=== PATIENT | male | born 1960 | race Caucasian/White ===

== ENCOUNTER 2021-10-23 12:16 | Emergency (ER) | payer OTHER ==
[~2021-10-23] VITALS: Ht 180.3 cm; Wt 77.1 kg
[2021-10-23] MEDS ORDERED: SOMA250 MG PO (12:22)
[2021-10-23 13:15] LABS: HEMATOCRIT 40.8 % (42.0-52.0); HEMOGLOBIN 13.8 gm/dL (14.0-18.0); MCH 32.3 pg (26.0-34.0); MCHC 33.8 g/dL (28.0-37.0); MCV 95.4 fL (80.0-100.0); MPV 9.1 fl. (7.2-11.1); NUCLEATED RBCS 0 /100WBC; PLATELET COUNT* 203 thou/uL (150-400); RBC 4.28 mil/uL (4.50-6.00); RDW-CV 13.8 % (10.5-14.5)
[2021-10-23 13:23] LABS: EOSINOPHILS 3.1 %; LYMPHOCYTES 30.6 %; MONOCYTES 10.5 %; POLYS 54.8 %
[2021-10-23 13:27] LABS: ABSOLUTE BASOPHILS 0.1 thou/uL (0.0-0.2); ABSOLUTE EOSINOPHILS 0.2 thou/uL (0.0-0.7); ABSOLUTE LYMPHOCYTES 1.8 thou/uL (0.8-5.3); ABSOLUTE MONOCYTES 0.6 thou/uL (0.0-1.2); ABSOLUTE NEUTROPHILS 3.2 thou/uL (1.6-8.1)
[2021-10-23 13:32] LABS: CALCIUM 8.2 mg/dL (8.5-10.1); CREATININE 0.7 mg/dL (0.6-1.3); POTASSIUM 3.9 mmol/L (3.5-5.1)
[2021-10-23 13:37] LABS: ALBUMIN 2.4 g/dL (3.4-5.0); TOTAL BILIRUBIN 0.8 mg/dL (<0.1-1.0); TOTAL PROTEIN 7.4 g/dL (6.4-8.2)
[2021-10-23] MEDS ORDERED: COMPRESSION TH1 EACH MISCELL (14:59)
[2021-10-23 15:13] VITALS: BP 121/68
--- NOTE | 2021-10-24 10:02 | EKG ---
[place] [address] ELECTROCARDIOGRAM REPORT Name: RENETTA DOYLE [facility] [id number] Admission: 10/23/21 Attend Phys: Discharge: 10/23/21 Date of : 58 Date of Service: 10/23/21 1247 Report #: [id number] THIS REPORT FOR: //name// [facility] ED Test Date: 2021-10-23 Test Time: 12:47:36 Pat Name: RENETTA DOYLE Department: Room: Gender: [employer] Department Supervisor: : 1960 Requested By: Myesha Leslie Order Number: [id number] MD: Jeircho Bain Measurements Intervals [place] Rate: 58 P: 31 MT: 132 QRS: 90 QRSD: 128 T: -1 QT: 435 QTc: 428 Interpretive Statements Sinus rhythm Atrial premature complex Nonspecific intraventricular conduction delay Diffuse nonspecific ST-T alteration No previous ECG available for comparison Electronically Signed On 10-23-2021 14:13:54 [employer]IC[employer] by Jericho Bain [email or web address] <ELECTRONICALLY SIGNED> By: Jericho Bain MD, [facility] 10/23/21 1413 1247 1247 Jericho Bain MD, [facility] /EPI
== END 2021-10-23 15:34 | disposition home or self-care (01) ==
LOC: M.ERS 12:16
PROVIDERS: Nurse Practitioner Family
DX: R60.0 Localized edema (principal); R53.1 Weakness; L40.9 Psoriasis, unspecified; F17.210 Nicotine dependence, cigarettes, uncomplicated; Z86.718 Personal history of other venous thrombosis and embolism; Z86.73 Personal history of transient ischemic attack (TIA), and cerebral infarction without residual deficits; Z79.899 Other long term (current) drug therapy; Z88.5 Allergy status to narcotic agent